=== PATIENT | male | born 1970 | race Caucasian/White ===

== ENCOUNTER 2020-11-23 10:34 | Outpatient (CLI) | payer OTHER, MEDICARE ==
[~2020-11-23 10:34] MED LIST: AMLO-211 PO; ASPI-963 PO; HYDR-2214 PO; HYDR12.517 PO; LISI2.5T12 PO
[2020-12-04] MEDS ORDERED: ALPR1TAB2 PO ×2 (10:41→11:09)
== END 2020-11-23 23:59 | disposition home or self-care (01) ==
LOC: CFH 10:34
PROVIDERS: ATTEND Physician Assistant
DX: R59.1 Generalized enlarged lymph nodes (principal)
CPT/HCPCS: 76536

== ENCOUNTER 2020-12-03 09:25 | Outpatient (CLI) | payer OTHER, MEDICARE ==
[2020-12-03 10:07] LABS: CREATININE 1.18 mg/dL (0.7-1.3)
[2020-12-03] MEDS ORDERED: OMNIPAQUE 350 MG/ML, 100ML BOTTLE ONE (10:45)
[2020-12-04] MEDS ORDERED: ALPR1TAB2 PO ×2 (10:41→11:09)
== END 2020-12-03 23:59 | disposition home or self-care (01) ==
LOC: RAD 09:25
PROVIDERS: ATTEND Nurse Practitioner Family
DX: R22.1 Localized swelling, mass and lump, neck (principal); E22.1 Hyperprolactinemia
CPT/HCPCS: 36415; 70491; 82565; Q9967